=== PATIENT | female | born 1965 | race African-American/Black ===

== ENCOUNTER 2019-02-19 10:53 | Emergency (ER) | payer MEDICAID ==
[~2019-02-19] VITALS: Ht 162.6 cm; Wt 84.7 kg
[~2019-02-19 10:53] MED LIST: AMLO5TAB4 PO; CITA20TA9 PO; HYDR-3341 PO; HYDR25TA6 PO; ISOS10TA2 PO; LISI-170 PO
[2019-02-19] MEDS ORDERED: ALBUTEROL/IPRATROPIUM 2.5MG/0.5MG, 3 ML ONE (11:26)
[2019-02-19] MEDS ORDERED: ALBUTEROL/IPRATROPIUM 2.5MG/0.5MG, 3 ML NPPB ONE (11:30)
[2019-02-19 11:38] LABS: BASOPHILS # (AUTO) 0.01 x10^3/uL (0-0.1); BASOPHILS % (AUTO) 0 % (0-1); EOSINOPHILS # (AUTO) 0.11 x10^3/uL (0-0.4); EOSINOPHILS % (AUTO) 3 % (1-7); LYMPHOCYTES # (AUTO) 1.36 x10^3/uL (1-3.4); LYMPHOCYTES % (AUTO) 37 % (22-44); MD NO; MEAN CORPUSCULAR HEMOGLOBIN 26.2 pg (27.0-34.8); MEAN CORPUSCULAR VOLUME 81.8 fL (80-100); MONOCYTES # (AUTO) 0.43 x10^3/uL (0.2-0.8); MONOCYTES % (AUTO) 12 % (2-9); NEUTROPHILS # (AUTO) 1.79 x10^3/uL (1.8-6.8); NEUTROPHILS % (AUTO) 48 % (42-75); PLATELET COUNT 240 x10^3/uL (130-400); RED CELL DISTRIBUTION WIDTH 13.5 % (9.6-15.2)
[2019-02-19 11:47] LABS: ALBUMIN 3.4 g/dL (3.4-5.0); ANION GAP 6 mmol/L (5-15); CALCIUM 8.7 mg/dL (8.5-10.1); CHLORIDE 107 mmol/L (98-107)
[2019-02-19 11:53] LABS: ALANINE AMINOTRANSFERASE 15 U/L (12-78); ALKALINE PHOSPHATASE 66 U/L (45-117); BILIRUBIN,TOTAL 0.4 mg/dL (0.2-1.0); CREATININE 0.84 mg/dL (0.55-1.02); TOTAL PROTEIN 7.6 g/dL (6.4-8.2); TROPONIN I < 0.015 ng/mL (0.000-0.045)
[2019-02-19] MEDS ORDERED: SODIUM CHLORIDE FLUSH 10ML SYR IVF ONE (12:00)
[2019-02-19] MEDS ORDERED: CEFTRIAXONE PMX 1GM/50ML 50 ML IVPB ONE (12:00)
[2019-02-19] MEDS ORDERED: AZITHROMYCIN 500 MG in SODIUM CHLORIDE 0.9% 250 ML IV ONE (12:00)
[2019-02-19] MEDS ORDERED: CEFTRIAXONE PMX 1GM/50ML 50 ML ONE (12:05)
--- NOTE | 2019-02-19 13:15 | NUR ---
Pt ambulated to restroom with steady independent gait. Returned to bed without issue. IV infusing. Pt updated on plan of care. Denies any further needs or concerns at this time.
--- NOTE | 2019-02-19 13:34 | NUR ---
IV infusing. Pt resting in bed. Denies any needs at this time.
[2019-02-19 13:39] VITALS: BP 119/59
== END 2019-02-19 14:38 | disposition home or self-care (01) ==
LOC: ED 11:56
DX: J18.1 Lobar pneumonia, unspecified organism (principal); R06.00 Dyspnea, unspecified; I10 Essential (primary) hypertension; Z87.891 Personal history of nicotine dependence
CPT/HCPCS: 36415; 71046; 80053; 83880; 84484; 85025; 93005; 94640; 96365; 96367; 99284; J0456; J0696; J7050; J7512; J7620; 96372

== ENCOUNTER 2020-07-23 20:03 | Emergency (ER) | payer MEDICAID ==
[~2020-07-23] VITALS: Ht 162.6 cm; Wt 80.0 kg
[2020-07-23 20:06] VITALS: BP 126/88
[2020-07-23] MEDS ORDERED: HYDROmorphone 1 MG/ML, 1ML INJ ONE (20:20)
[2020-07-23] MEDS ORDERED: HYDROmorphone 1 MG/ML, 1ML INJ IM ONE (20:30)
--- NOTE | 2020-07-23 21:13 | NUR ---
PT REPORTS PAIN HAS IMPROVED SINCE PAIN MED ADMINITRAION. PT NOW RESTING COMFORTABLY ON GURNEY.
[2020-07-23] MEDS ORDERED: ONDANSETRON ODT 4 MG ONE (22:02)
[2020-07-23] MEDS ORDERED: ONDANSETRON ODT 4 MG PO ONE (22:30)
== END 2020-07-23 22:49 | disposition home or self-care (01) ==
LOC: ED 21:16
DX: S80.01XA Contusion of right knee, initial encounter (principal); M25.511 Pain in right shoulder; M25.512 Pain in left shoulder; W01.0XXA Fall on same level from slipping, tripping and stumbling without subsequent striking against object, initial encounter; I10 Essential (primary) hypertension; Y93.89 Activity, other specified; Y92.59 Other trade areas as the place of occurrence of the external cause; Y99.8 Other external cause status
CPT/HCPCS: 29505; 73564; 73610; 99283; J1170; Q0162